=== PATIENT | female | born 1980 | race Caucasian/White ===

== ENCOUNTER 2021-10-22 13:54 | Outpatient (CLI) | payer BC ==
[2021-10-22] MEDS ORDERED: Magnevist 469MG/ML 20 ML VIAL ONE (16:11)
== END 2021-10-22 13:55 | disposition home or self-care (01) ==
LOC: MRI 13:54
PROVIDERS: ATTEND Psychiatry & Neurology Neurology
DX: R56.9 Unspecified convulsions (principal); G93.0 Cerebral cysts; Q01.8 Encephalocele of other sites
CPT/HCPCS: 70553; 95816; 95957; A9579